=== PATIENT | male | born 1960 | race Two or more races ===

== ENCOUNTER 2019-01-05 19:03 | Inpatient (IN) | payer BC ==
--- NOTE | 2019-01-05 20:43 | HP ---
CIWA Score Nausea/Vomitin-Mild Nausea/No Vomiting Muscle Tremors: 4-Moderate,w/Arms Extend Anxiety: 3 Agitation: 4-Moderately Restless Paroxysmal Sweats: 2 Orientation: 0-Oriented Tacttile Disturbances: 0-None Auditory Disturbances: 0-None Visual Disturbances: 0-None Headache: 3-Moderate CIWA-Ar Total Score: 17 - Admission Criteria [facility]ASAS Guidelines: Admission for Medically Managed Detox: Requires at least one of the followin. CIWA greater than 12 2. Seizures within the past 24 hours 3. Delirium tremens within the past 24 hours 4. Hallucinations within the past 24 hours 5. Acute intervention needed for co occurring medical disorder 6. Acute intervention needed for co occurring psychiatric disorder 7. Severe withdrawal that cannot be handled at a lower level of care (continued vomiting, continued diarrhea, abnormal vital signs) requiring intravenous medication and/or fluids 8. Admission [facility] Chief Complaint: Alcohol withdrawal symptoms Allergies/Adverse Reactions: Allergies Allergy/AdvReac Type Severity Reaction Status Date / Time No Known Allergies Allergy Verified 01/05/19 19:56 History of Present Illness: 58 years old male with a long history of alcohol dependence is seeking admission to detox. Patient reports that that this is his first time in inpatient detox and first admission to [facility]. He reports history of hypertension and denies suicide attempt and suicidal ideation at this time. Patient was referred from his PCP office. Exam Limitations: No Limitations - Ebola screening Have you traveled outside of the country in the last 21 days: No (N) Have you had contact with anyone from an Ebola affected area: No Do you have a fever: No - Review of Systems Constitutional: Malaise, Changes in sleep EENT: reports: No Symptoms Reported Respiratory: reports: No Symptoms reported Cardiac: reports: No Symptoms Reported GI: reports: Nausea, Poor Fluid Intake, Abdominal cramping : reports: No Symptoms Reported Musculoskeletal: reports: No Symptoms Reported Integumentary: reports: Dryness, Flushing Neuro: reports: Tremors Endocrine: reports: No Symptoms Reported Hematology: reports: No Symptoms Reported Psychiatric: reports: No Sypmtoms Reported, Orientated x3, Anxious Other Systems: Reviewed and Negative Patient History - Patient Medical History Hx Anemia: No Hx Asthma: Yes (Singulair, Albuterol) Hx Chronic Obstructive Pulmonary Disease (COPD): No Hx Cancer: No Hx Cardiac Disorders: No Hx Congestive Heart Failure: No Hx Hypertension: No Hx Hypercholesterolemia: No Hx Pacemaker: No HX Cerebrovascular Accident: No Hx Seizures: No Hx Diabetes: No Hx Gastrointestinal Disorders: No Hx Liver Disease: No Hx Genitourinary Disorders: No Hx Sexually Transmitted Disorders: No Hx Renal Disease (ESRD): No Hx Thyroid Disease: No Hx Human Immunodeficiency Virus (HIV): No (Negative 2015) Hx Hepatitis C: No Hx Depression: No Hx Suicide Attempt: No (Denies suicide attempt / suicidal ideation at this time) Hx Bipolar Disorder: No Hx Schizophrenia: No - Patient Surgical History Past Surgical History: No - PPD History Previous Implant?: Yes Documented Results: Negative w/o proof Implanted On Prior R Admission?: No PPD to be Administered?: Yes - Reproductive History Patient is a Female of Child Bearing Age (11 -55 yrs old): No (male) - Smoking Cessation Smoking history: Never smoked Have you smoked in the past 12 months: No Hx Chewing Tobacco Use: No Initiated information on smoking cessation: No - Substance & Tx. History Hx Alcohol Use: Yes Hx Substance Use: No Substance Use Type: Alcohol Hx Substance Use Treatment: No - Substances abused Alcohol Substance route: Oral Frequency: Daily Amount used: 30oz. VODKA Age of first use: 31 Date of last use: 01/05/19 Family Disease History - Family Disease History Family History: Denies Admission Physical Exam [facility] - Vital Signs Vital Signs: Vital Signs - 24 hr 01/05/19 19:48 Temperature 97.4 F L Pulse Rate 60 Respiratory 18 Rate Blood Pressure 121/70 - Physical General Appearance: Yes: Nourished, Appropriately Dressed, Moderate Distress HEENTM: Yes: Within Normal Limits Respiratory: Yes: Lungs Clear, Normal Breath Sounds, No Respiratory Distress Neck: Yes: Supple Breast: Yes: Breast Exam Deferred Cardiology: Yes: Regular Rhythm, Regular Rate Abdominal: Yes: Normal Bowel Sounds, Soft Genitourinary: Yes: Within Normal Limits Back: Yes: Normal Inspection Musculoskeletal: Yes: Joint Stiffness Cleared for Admission [facility] - Detox or Rehab [facility] Level of Care: Medically Managed Detox Regimen/Protocol: Librium Breathalyzer - Breathalyzer Breathalyzer: 0.080 Urine Drug Screen - Test Device Lot number: [id number] Expiration date: 10/03/20 - Control Is test valid?: Yes - Results Drug screen NEGATIVE: Yes Inpatient Rehab Admission - Rehab Decision to Admit Inpatient rehab admission?: No
[2019-01-05] MEDS ORDERED: IBUPROFEN 400 MG TABLET (FP) PO PRN (20:48)
[2019-01-05] MEDS ORDERED: MAGNESIUM CITRATE 300 ML BOTTLE PO PRN (20:48)
[2019-01-05] MEDS ORDERED: ACETAMINOPHEN 325 MG TABLET (FP) PO PRN ×2 (20:48)
[2019-01-05] MEDS ORDERED: MENTHOL/PHENOL 1 EACH UD MM PRN (20:48)
[2019-01-05] MEDS ORDERED: hydrOXYzine PAMOATE 25 MG CAPSULE (FP) PO PRN (20:48)
[2019-01-05] MEDS ORDERED: MAG HYDROX/AL HYDROX/SIMETH 30 ML UNIT-DOSE CUP PO PRN (20:48)
[2019-01-05] MEDS ORDERED: MAGNESIUM HYDROX 2400MG/30ML ORAL SUSPENSION 30 ML CUP PO PRN (20:48)
[2019-01-05] MEDS ORDERED: BISMUTH SUBSALICYLATE 524 MG/30 ML UD PO PRN (20:48)
[2019-01-05] MEDS ORDERED: chlordiazePOXIDE HCL 10 MG CAPSULE PO PRN (20:48)
[2019-01-05] MEDS: MONTELUKAST NA 10 MG TABLET PO SCH (22:11)
[2019-01-05] MEDS: METHOCARBAMOL 500 MG TABLET PO PRN (22:11)
[2019-01-05] MEDS: MELATONIN 5 MG TABLETS PO PRN (22:11)
[2019-01-05] MEDS: chlordiazePOXIDE HCL 25 MG CAPSULE PO SCH (22:13)
[2019-01-05] MEDS: ALBUTEROL SO4 8 GM HFA INHALER IH SCH (22:15)
[2019-01-05] MEDS: THIAMINE HCL 100 MG TABLET (FP) PO SCH (22:17)
[2019-01-06] MEDS: ALBUTEROL SO4 8 GM HFA INHALER IH SCH ×6 (02:39→21:44)
[2019-01-06] MEDS: chlordiazePOXIDE HCL 25 MG CAPSULE PO SCH ×3 (05:19→21:44)
[2019-01-06] MEDS: PRENATAL VITAMINS W/ FOLIC ACID TABLET (FP) PO SCH (10:23)
[2019-01-06 10:54] LABS: HEMATOCRIT 42.7 % (35.4-49); HEMOGLOBIN 14.5 GM/dL (11.7-16.9); MCH 29.2 pg (25.7-33.7); MCHC 33.9 g/dl (32.0-35.9); MEAN CELL VOLUME 85.9 fl (80-96); PLATELET COUNT 228 K/MM3 (134-434); RBC 4.96 M/mm3 (4.00-5.60); RDW 13.3 % (11.9-15.9); WHITE BLOOD COUNT 7.7 K/mm3 (4.0-10.0)
[2019-01-06 11:01] LABS: ALBUMIN 3.4 g/dl (3.4-5.0); BILIRUBIN,TOTAL 0.5 mg/dL (0.2-1); BLOOD UREA NITROGEN 10.7 mg/dL (7-18); CREATININE 0.8 mg/dL (0.55-1.3); TOT PROT 6.6 g/dl (6.4-8.2)
--- NOTE | 2019-01-06 11:29 | PN ---
S CIWA - CIWA Score Nausea/Vomitin-No Nausea/No Vomiting Muscle Tremors: 2 Anxiety: 2 Agitation: 2 Paroxysmal Sweats: 3 Orientation: 0-Oriented Tacttile Disturbances: 0-None Auditory Disturbances: 0-None Visual Disturbances: 0-None Headache: 0-None Present CIWA-Ar Total Score: 9 S Progress Note (SOAP) Subjective: c/o sweats, anxiety, and headache. Objective: 01/06/19 11:27 Vital Signs 01/06/19 01/06/19 01/06/19 03:30 06:47 09:49 Temperature 97.7 F 97.3 F L Pulse Rate 70 70 68 Respiratory 18 18 17 Rate Blood Pressure 118/60 143/83 Lab Results WBC 7.7 K/mm3 (4.0-10.0) 01/06/19 07:30 RBC 4.96 M/mm3 (4.00-5.60) 01/06/19 07:30 Hgb 14.5 GM/dL (11.7-16.9) 01/06/19 07:30 Hct 42.7 % (35.4-49) 01/06/19 07:30 MCV 85.9 fl (80-96) 01/06/19 07:30 MCHC 33.9 g/dl (32.0-35.9) 01/06/19 07:30 RDW 13.3 % (11.9-15.9) 01/06/19 07:30 Plt Count 228 K/MM3 (134-434) 01/06/19 07:30 Sodium 141 mmol/L (136-145) 01/06/19 07:30 Potassium 4.0 mmol/L (3.5-5.1) 01/06/19 07:30 Chloride 106 mmol/L (98-107) 01/06/19 07:30 Carbon Dioxide 29 mmol/L (21-32) 01/06/19 07:30 Anion Gap 6 MMOL/L (8-16) L 01/06/19 07:30 BUN 10.7 mg/dL (7-18) 01/06/19 07:30 Creatinine 0.8 mg/dL (0.55-1.3) 01/06/19 07:30 Random Glucose 98 mg/dL (74-106) 01/06/19 07:30 Calcium 9.0 mg/dL (8.5-10.1) 01/06/19 07:30 Labs noted. Assessment: 01/06/19 11:28 AOX3, in no acute distress. Full ROM, ambulating in the unit. Withdrawal symptoms. Plan: continue detox.
[2019-01-06] MEDS: THIAMINE HCL 100 MG TABLET (FP) PO SCH (21:44)
[2019-01-06] MEDS: MONTELUKAST NA 10 MG TABLET PO SCH (21:44)
[2019-01-07] MEDS: ALBUTEROL SO4 8 GM HFA INHALER IH SCH ×6 (04:21→22:26)
[2019-01-07] MEDS: chlordiazePOXIDE 5 MG CAPSULE PO SCH ×3 (05:32→22:27)
[2019-01-07] MEDS: PRENATAL VITAMINS W/ FOLIC ACID TABLET (FP) PO SCH (10:21)
--- NOTE | 2019-01-07 17:12 | PN ---
S CIWA - CIWA Score Nausea/Vomitin-Mild Nausea/No Vomiting Muscle Tremors: 4-Moderate,w/Arms Extend Anxiety: 4-Mod. Anxious/Guarded Agitation: 2 Paroxysmal Sweats: 3 Orientation: 0-Oriented Tacttile Disturbances: 0-None Auditory Disturbances: 0-None Visual Disturbances: 0-None Headache: 0-None Present CIWA-Ar Total Score: 14 BHS Progress Note (SOAP) Subjective: Feels ok, sxs controlled with medications Objective: 01/07/19 17:11 Last Vital Signs Temp Pulse Resp BP Pulse Ox 97.7 F 71 18 138/71 01/07/19 13:46 01/07/19 13:46 01/07/19 13:46 01/07/19 13:46 Laboratory Tests 01/06/19 01/06/19 01/06/19 07:30 07:30 07:30 WBC 7.7 RBC 4.96 Hgb 14.5 Hct 42.7 MCV 85.9 MCH 29.2 MCHC 33.9 RDW 13.3 Plt Count 228 MPV 9.0 Sodium 141 Potassium 4.0 Chloride 106 Carbon Dioxide 29 Anion Gap 6 L BUN 10.7 Creatinine 0.8 Est GFR (CKD-EPI)AfAm 114.93 Est GFR (CKD-EPI)NonAf 99.16 Random Glucose 98 Calcium 9.0 Total Bilirubin 0.5 AST 15 ALT 22 Alkaline Phosphatase 101 Total Protein 6.6 Albumin 3.4 RPR Titer Nonreactive Labs reviewed Assessment: 01/07/19 17:11 Withdrawal sxs Plan: Continue detox Encouraged PO water intake
[2019-01-07] MEDS: MONTELUKAST NA 10 MG TABLET PO SCH (22:27)
[2019-01-07] MEDS: THIAMINE HCL 100 MG TABLET (FP) PO SCH (22:27)
[2019-01-07] MEDS: MELATONIN 5 MG TABLETS PO PRN (22:27)
[2019-01-08] MEDS ORDERED: chlordiazePOXIDE HCL 10 MG CAPSULE PO PRN
[2019-01-08] MEDS: ALBUTEROL SO4 8 GM HFA INHALER IH SCH ×6 (04:06→22:12)
[2019-01-08] MEDS ORDERED: chlordiazePOXIDE 5 MG CAPSULE ONE ×3 (04:23→21:14)
[2019-01-08] MEDS: chlordiazePOXIDE HCL 10 MG CAPSULE PO SCH ×3 (06:28→22:12)
--- NOTE | 2019-01-08 10:14 | PN ---
S CIWA - CIWA Score Nausea/Vomitin-No Nausea/No Vomiting Muscle Tremors: 2 Anxiety: 1-Mildly Anxious Agitation: 0-Normal Activity Paroxysmal Sweats: No Perspiration Orientation: 0-Oriented Tacttile Disturbances: 0-None Auditory Disturbances: 0-None Visual Disturbances: 0-None Headache: 0-None Present CIWA-Ar Total Score: 3 BHS Progress Note (SOAP) Subjective: feels ok little anxiety Objective: 01/08/19 10:13 Vital Signs Temperature 97.0 F L 01/08/19 09:24 Pulse Rate 67 01/08/19 09:24 Respiratory Rate 18 01/08/19 09:24 Blood Pressure 148/79 01/08/19 09:24 O2 Sat by Pulse Oximetry (%) Laboratory Tests 01/06/19 01/06/19 01/06/19 07:30 07:30 07:30 WBC 7.7 RBC 4.96 Hgb 14.5 Hct 42.7 MCV 85.9 MCH 29.2 MCHC 33.9 RDW 13.3 Plt Count 228 MPV 9.0 Sodium 141 Potassium 4.0 Chloride 106 Carbon Dioxide 29 Anion Gap 6 L BUN 10.7 Creatinine 0.8 Est GFR (CKD-EPI)AfAm 114.93 Est GFR (CKD-EPI)NonAf 99.16 Random Glucose 98 Calcium 9.0 Total Bilirubin 0.5 AST 15 ALT 22 Alkaline Phosphatase 101 Total Protein 6.6 Albumin 3.4 RPR Titer Nonreactive labs noted aaox3 ambulating no acute distress Assessment: 01/08/19 10:14 withdrawal sx Plan: continue detox increase fluids d/c in am
[2019-01-08] MEDS: PRENATAL VITAMINS W/ FOLIC ACID TABLET (FP) PO SCH (10:16)
[2019-01-08] MEDS: METHOCARBAMOL 500 MG TABLET PO PRN (22:12)
[2019-01-08] MEDS: THIAMINE HCL 100 MG TABLET (FP) PO SCH (22:12)
[2019-01-08] MEDS: MONTELUKAST NA 10 MG TABLET PO SCH (22:12)
[2019-01-09] MEDS: ALBUTEROL SO4 8 GM HFA INHALER IH SCH ×2 (02:11→05:19)
[2019-01-09] MEDS ORDERED: chlordiazePOXIDE 5 MG CAPSULE ONE (04:10)
[2019-01-09] MEDS ORDERED: chlordiazePOXIDE HCL 10 MG CAPSULE PO ONE (05:00)
--- NOTE | 2019-01-09 09:03 | DS ---
[facility] Detox Discharge Summary Admission Date: 01/05/19 Discharge Date: 01/09/19 - History Present History: Alcohol Dependence - Physical Exam Results Vital Signs: Vital Signs Temperature 97.5 F L 01/09/19 07:09 Pulse Rate 85 01/09/19 07:09 Respiratory Rate 18 01/09/19 07:09 Blood Pressure 124/62 01/09/19 07:09 O2 Sat by Pulse Oximetry (%) Pertinent Admission Physical Exam Findings: pt arrived in withdrawal sx Laboratory Tests 01/06/19 01/06/19 01/06/19 07:30 07:30 07:30 WBC 7.7 RBC 4.96 Hgb 14.5 Hct 42.7 MCV 85.9 MCH 29.2 MCHC 33.9 RDW 13.3 Plt Count 228 MPV 9.0 Sodium 141 Potassium 4.0 Chloride 106 Carbon Dioxide 29 Anion Gap 6 L BUN 10.7 Creatinine 0.8 Est GFR (CKD-EPI)AfAm 114.93 Est GFR (CKD-EPI)NonAf 99.16 Random Glucose 98 Calcium 9.0 Total Bilirubin 0.5 AST 15 ALT 22 Alkaline Phosphatase 101 Total Protein 6.6 Albumin 3.4 RPR Titer Nonreactive today pt is aaox3 ambulating no acute distress no s/s of withdrawal sx - Treatment Hospital Course: Detox Protocol Followed, Detoxed Safely, Responded well, Discharged Condition Good, Rehab Referral Accepted Patient has Accepted a Rehab Referral to: pt declined - Medication Discharge Medications: Ambulatory Orders Albuterol Sulfate Inhaler - [Ventolin Hfa Inhaler -] 1 - 2 inh PO Q4H 01/05/19 Montelukast Na [Singulair -] 10 mg PO HS 01/05/19 - Diagnosis (1) Alcohol dependence with uncomplicated withdrawal Current Visit: Yes Status: Chronic - AMA Did Patient Leave Against Medical Advice: No
[2019-01-09 09:34] VITALS: BP 133/85; PULSE 86; TEMP 97.2
== END 2019-01-09 09:38 | disposition home or self-care (01) | DRG 775 ==
LOC: YASAS 19:03 → Y6N 21:04
PROVIDERS: ADMIT Surgery; ATTEND Surgery
PROC: HZ2ZZZZ Detoxification Services for Substance Abuse Treatment (ICD-10-PCS; principal; 2019-01-05)
DX: F10.230 Alcohol dependence with withdrawal, uncomplicated (principal); J45.909 Unspecified asthma, uncomplicated
CPT/HCPCS: 36415; 80053; 85027; 86480; 86593; 93005; 93010